=== PATIENT | female | born 1995 | race African-American/Black ===

== ENCOUNTER 2017-10-15 23:13 | Emergency (ER) | payer OTHER ==
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
[2017-10-15 23:22] VITALS: BP 120/87; PULSE 73; TEMP 98.8; BMI 39.4
== END 2017-10-16 00:21 | disposition home or self-care (01) ==
LOC: FER 23:13
DX: Z04.1 Encounter for examination and observation following transport accident (principal); V47.1XXA Car passenger injured in collision with fixed or stationary object in nontraffic accident, initial encounter; Y93.89 Activity, other specified; Y92.410 Unspecified street and highway as the place of occurrence of the external cause
CPT/HCPCS: 99281-25; 99282-25

== ENCOUNTER 2018-07-09 03:35 | Inpatient (IN) | payer BC | END 2018-07-11 18:00 | disposition home or self-care (01) | LOC: JLDR 03:35 → J3W 08:00 ==

== ENCOUNTER 2021-10-15 14:26 | Emergency (ER) | payer BC, OTHER ==
[2021-10-15 14:39] VITALS: BP 114/71; PULSE 78; RESP 18; TEMP 98.1; BMI 36.9
[2021-10-15] MEDS ORDERED: IBUPROFEN 600 MG TABLET (FP) PO ONE ×2 (15:06→15:10)
== END 2021-10-15 16:21 | disposition home or self-care (01) ==
LOC: JER 14:26 → JERFT 14:26
DX: R51.9 Headache, unspecified (principal); Y04.0XXA Assault by unarmed brawl or fight, initial encounter
CPT/HCPCS: 70450-TC; 70486-TC; 99284-25

== ENCOUNTER 2023-06-28 04:45 | Day surgery (SDC) | payer OTHER ==
[2023-06-25 10:35] VITALS: BMI 40.0
[2023-06-28] MEDS ORDERED: ACETAMINOPHEN 325 MG TABLET (FP) PO PRN (07:43)
[2023-06-28] MEDS ORDERED: IBUPROFEN 400 MG TABLET (FP) PO PRN (07:43)
[2023-06-28] MEDS ORDERED: MIDAZOLAM HCL 2 MG/2 ML SINGLE DOSE VIAL ONE (13:23)
[2023-06-28] MEDS ORDERED: FENTANYL CITRATE/PF 50 MCG/ML VIAL ONE (13:24)
[2023-06-28] MEDS ORDERED: PROPOFOL 40 ML ONE (13:25)
[2023-06-28] MEDS ORDERED: PROPOFOL 20 ML ONE (13:26)
[2023-06-28] MEDS ORDERED: ONDANSETRON 4 MG/2 ML VIAL ONE (13:35)
[2023-06-28] MEDS ORDERED: CLINDAMYCIN 600MG PREMIX IVPB 0 MG/0 ML BAG IVPB ONE (13:35)
[2023-06-28] MEDS ORDERED: DEXAMETHASONE SOD PHOSPHATE 4 MG/1 ML VIAL ONE (13:35)
[2023-06-28] MEDS ORDERED: ONDANSETRON 4 MG/2 ML VIAL IVPUSH PRN (14:23)
[2023-06-28] MEDS ORDERED: LACTATED RINGERS SOLUTION 1,000 ML IV SCH (14:30)
[2023-06-28] MEDS ORDERED: KETOROLAC TROMETHAMINE 30 MG/1 ML VIAL ONE (15:55)
[2023-06-28] MEDS: KETOROLAC TROMETHAMINE 30 MG/1 ML VIAL IVPUSH ONE (16:19)
[2023-06-28 16:47] VITALS: RESP 20
[2023-06-28 17:52] VITALS: BP 125/75; PULSE 78; TEMP 97.3
== END 2023-06-28 17:52 | disposition home or self-care (01) ==
LOC: JASU-SURG 04:45
PROVIDERS: ATTEND Obstetrics & Gynecology
PROC: 0U5 Female Reproductive System, Destruction (ICD-10-PCS; principal; 2023-06-28 13:00)
PROC: 0U598ZZ Destruction of Uterus, Via Natural or Artificial Opening Endoscopic (ICD-10-PCS; 2023-06-28 13:00)
DX: D25.0 Submucous leiomyoma of uterus (principal); D25.9 Leiomyoma of uterus, unspecified
CPT/HCPCS: 81025; 86850; 86900; 86901; 88305-TC; 94760